=== PATIENT | female | born 1965 | race African-American/Black ===

== ENCOUNTER 2021-08-26 12:25 | Outpatient (CLI) | payer BC ==
[2021-08-27 08:45] LABS: SARS-CoV-2 PCR by NAA Not Detected (NotDetected)
== END 2021-08-26 12:26 | disposition home or self-care (01) ==
LOC: CSHLAB 12:25
PROVIDERS: ATTEND Internal Medicine Critical Care Medicine
DX: Z01.812 Encounter for preprocedural laboratory examination (principal); Z20.822 Contact with and (suspected) exposure to COVID-19
CPT/HCPCS: U0003; U0005

== ENCOUNTER 2021-08-31 15:13 | Outpatient (CLI) | payer BC | END 2021-08-31 15:14 | disposition home or self-care (01) | LOC: CSHCP 15:13 | PROVIDERS: ATTEND Internal Medicine Critical Care Medicine | DX: L93.0 Discoid lupus erythematosus (principal); R91.1 Solitary pulmonary nodule; J45.909 Unspecified asthma, uncomplicated; R94.2 Abnormal results of pulmonary function studies | CPT/HCPCS: 94010; 94726; 94729; 94760 ==

== ENCOUNTER 2022-11-01 10:43 | Day surgery (SDC) | payer BC, MEDICARE ==
[2022-10-28 14:22] VITALS: BMI 19.2
[2022-11-01] MEDS ORDERED: Midazolam HCl 2 mg/2 ml Vial ONE ×2 (11:46→11:55)
[2022-11-01] MEDS ORDERED: Dexamethasone 20 MG/5 ML VIAL ONE (11:46)
[2022-11-01] MEDS ORDERED: Glycopyrrolate 0.2 MG/ML 5 ML SYRINGE ONE (11:46)
[2022-11-01] MEDS ORDERED: Ondansetron PF 4 MG/2 ML Vial ONE (11:46)
[2022-11-01] MEDS ORDERED: Lidocaine 1% PF 5 ML VIAL ONE (11:46)
[2022-11-01] MEDS ORDERED: Fentanyl 100 MCG/2 ML VIAL ONE (11:46)
[2022-11-01] MEDS ORDERED: PROPOFOL 20 ML ONE (11:46)
[2022-11-01] MEDS ORDERED: Bupivacaine PF 0.5% 30 ML VIAL ONE (11:53)
[2022-11-01] MEDS ORDERED: EPINEPHrine 1 MG/ML AMP ONE (11:53)
[2022-11-01] MEDS ORDERED: CEFAZOLIN 2 GM VIAL ONE (12:00)
[2022-11-01] MEDS ORDERED: HYDROcodone/Acetaminophen 10/325 mg Tablet PO PRN (13:02)
== END 2022-11-01 13:37 | disposition home or self-care (01) ==
LOC: CSHSDC 10:43
PROVIDERS: ATTEND Surgery
PROC: 07TJ0ZZ Resection of Left Inguinal Lymphatic, Open Approach (ICD-10-PCS; principal; 2022-11-01)
DX: I88.8 Other nonspecific lymphadenitis (principal); M32.9 Systemic lupus erythematosus, unspecified; I10 Essential (primary) hypertension; J45.909 Unspecified asthma, uncomplicated; K21.9 Gastro-esophageal reflux disease without esophagitis; E78.00 Pure hypercholesterolemia, unspecified; Z79.899 Other long term (current) drug therapy
CPT/HCPCS: 88184; 88307; 88312; J0171; J1100; J2250; J2405; J2704; J3010; S0020

== ENCOUNTER 2022-12-06 07:53 | Outpatient (CLI) | payer BC | END 2022-12-06 07:54 | disposition home or self-care (01) | LOC: CSHCP 07:53 | PROVIDERS: ATTEND Internal Medicine Critical Care Medicine | DX: D86.9 Sarcoidosis, unspecified (principal); R94.2 Abnormal results of pulmonary function studies | CPT/HCPCS: 94060; 94726; 94729; 94760 ==

== ENCOUNTER 2024-04-02 07:26 | Outpatient (CLI) | payer BC | END 2024-04-02 07:27 | disposition home or self-care (01) | LOC: CSHCP 07:26 | PROVIDERS: ATTEND Internal Medicine Critical Care Medicine | DX: D86.9 Sarcoidosis, unspecified (principal) | CPT/HCPCS: 94060; 94726; 94729; 94760 ==